=== PATIENT | female | born 1985 ===

== ENCOUNTER → 2020-06-12 | Outpatient (CLI) | payer OTHER | END | disposition home or self-care (01) | LOC: PRENATAL 15:30 | PROVIDERS: ATTEND Obstetrics & Gynecology Maternal & Fetal Medicine | DX: O35.0XX1 Maternal care for (suspected) central nervous system malformation in fetus, fetus 1 (principal); O35.3XX1 Maternal care for (suspected) damage to fetus from viral disease in mother, fetus 1; O98.512 Other viral diseases complicating pregnancy, second trimester; O34.12 Maternal care for benign tumor of corpus uteri, second trimester; O09.522 Supervision of elderly multigravida, second trimester; Z36.89 Encounter for other specified antenatal screening; Z3A.20 20 weeks gestation of pregnancy ==

== ENCOUNTER 2020-10-28 16:41 | Outpatient (CLI) | payer OTHER ==
[2020-10-28] MEDS ORDERED: ZOFRAN8 MG PO (19:02)
[2020-10-28] MEDS ORDERED: PRENATAL TABLE1 EAC2 PO (19:02)
== END 2020-10-28 17:30 | disposition home or self-care (01) ==
LOC: OBS/DEL 16:41
PROVIDERS: ATTEND Obstetrics & Gynecology
DX: O36.8130 Decreased fetal movements, third trimester, not applicable or unspecified (principal); O48.0 Post-term pregnancy; Z3A.40 40 weeks gestation of pregnancy

== ENCOUNTER → 2020-11-01 | Outpatient (CLI) | payer OTHER ==
[~2020-11-01] MED LIST: PRENATAL TABLE1 EAC2 PO; ZOFRAN8 MG PO
== END | disposition home or self-care (01) ==
LOC: OBS/DEL 15:21
PROVIDERS: ATTEND Obstetrics & Gynecology
DX: O48.0 Post-term pregnancy (principal); Z20.822 Contact with and (suspected) exposure to COVID-19; Z3A.40 40 weeks gestation of pregnancy

== ENCOUNTER 2020-11-02 05:47 | Inpatient (IN) | payer OTHER ==
[~2020-11-02] VITALS: Ht 162.6 cm; Wt 77.1 kg
== END 2020-11-06 11:57 | disposition home or self-care (01) | DRG 788 ==
LOC: OB/GYN 05:47 → LDR 05:47 → O/R 16:44 → OB/GYN 19:05
PROVIDERS: ADMIT Obstetrics & Gynecology; ATTEND Obstetrics & Gynecology
PROC: 4A1HXFZ Monitoring of Products of Conception, Cardiac Rhythm, External Approach (ICD-10-PCS; 2020-11-02)
PROC: 10D00Z1 Extraction of Products of Conception, Low, Open Approach (ICD-10-PCS; principal; 2020-11-02 15:00)
DX: O64.2XX0 Obstructed labor due to face presentation, not applicable or unspecified (principal); O48.0 Post-term pregnancy; O99.824 Streptococcus B carrier state complicating childbirth; Z3A.41 41 weeks gestation of pregnancy; Z37.0 Single live birth

== ENCOUNTER 2020-11-18 15:35 | Inpatient (IN) | payer OTHER ==
[~2020-11-18] VITALS: Ht 162.6 cm; Wt 63.0 kg
[2020-11-19] MEDS ORDERED: ACID REDUCER20 M1 PO (08:12)
== END 2020-11-26 09:16 | disposition home or self-care (01) | DRG 776 ==
LOC: ER 15:35 → OB/GYN 21:48
PROVIDERS: ADMIT Obstetrics & Gynecology; ATTEND Obstetrics & Gynecology
PROC: BW2110Z Computerized Tomography (CT Scan) of Abdomen and Pelvis using Low Osmolar Contrast, Unenhanced and Enhanced (ICD-10-PCS; principal; 2020-11-19)
DX: O86.03 Infection of obstetric surgical wound, organ and space site (principal); O99.345 Other mental disorders complicating the puerperium; F43.23 Adjustment disorder with mixed anxiety and depressed mood; B96.20 Unspecified Escherichia coli [E. coli] as the cause of diseases classified elsewhere; Z20.822 Contact with and (suspected) exposure to COVID-19
CPT/HCPCS: 72191; 74175